=== PATIENT | female | born 1980 | race Caucasian/White ===

== ENCOUNTER → 2017-03-24 | Outpatient (CLI) | payer OTHER ==
[~2017-03-24] MED LIST: /CELE20CA PO; ACET50TA PO; AUGM875T27 PO; DIPH50VL PO; DOCU10ELUD PO; NEUR600T PO; OXYC-208 PO
--- NOTE | 2017-03-24 15:03 | REP ---
THORACIC SPINE, THREE VIEWS: HISTORY: Sprain. There is no acute fracture or subluxation. The intervertebral discs are normal in height. Small anterior osteophytes are present in the mid and lower thoracic spine. IMPRESSION: Degenerative change as described above. Signed by Elías Bah MD 03/24/2017 03:12 P
== END ==
LOC: M WUC 13:25
PROVIDERS: ATTEND Physician Assistant
DX: M25.78 Osteophyte, vertebrae (principal)

== ENCOUNTER → 2017-04-25 | Outpatient (CLI) | payer OTHER ==
--- NOTE | 2017-04-26 03:06 | REP ---
Clinical: Pain. Technique: AP, lateral, bilateral oblique views right foot . Findings: The osseous structures and joint spaces are intact and normal. There is no evidence for acute fracture or dislocation. Surrounding soft tissues are unremarkable. No subcutaneous emphysema or radiodense foreign body. Impression: Normal right foot radiograph series. No acute fracture or dislocation. Signed by Ramy Wilson MD 04/26/2017 02:57 A
== END ==
LOC: M WUC 16:41
PROVIDERS: ATTEND Physician Assistant
DX: M25.571 Pain in right ankle and joints of right foot (principal)

== ENCOUNTER → 2018-05-01 | Outpatient (CLI) | payer OTHER ==
[2018-05-01 12:00] LABS: THYROXINE (T4) 9.6 UG/DL (4.5-12.0)
[2018-05-01 12:00] LABS: THYROID STIMULATING HORMONE 0.881 uIU/ML (0.358-3.740)
[2018-05-03 00:07] LABS: SSA SJOGRENS A <0.2 AI (0.0-0.9); SSB SJOGRENS B <0.2 AI (0.0-0.9)
== END ==
LOC: M LAB 10:22
DX: Z13.29 Encounter for screening for other suspected endocrine disorder (principal)
CPT/HCPCS: 84443